=== PATIENT | male | born 1980 | race Two or more races ===

== ENCOUNTER 2018-10-26 12:34 | Emergency (ER) | payer OTHER ==
[~2018-10-26] VITALS: Ht 172.7 cm; Wt 82.6 kg
[~2018-10-26 12:34] MED LIST: AMOX1TAB12 PO; KEPPRA1000 MG; MUCINEX FAST-M1 EACH; ORASEP SPRAY30 ML MM; ZITHROMAX500 MG
== END 2018-10-26 16:36 | disposition home or self-care (01) ==
LOC: ER 12:34
DX: J03.80 Acute tonsillitis due to other specified organisms (principal); H60.592 Other noninfective acute otitis externa, left ear